=== PATIENT | female | born 1945 | race Caucasian/White ===

== ENCOUNTER 2017-11-29 17:01 | Emergency (ER) | payer MEDICARE ==
[2017-11-29 17:13] VITALS: BMI 32.2
[2017-11-29 17:18] VITALS: O2SAT 98
[2017-11-29] MEDS ORDERED: Sodium Chloride 0.9% 1,000 ML IV STA (18:19)
[2017-11-29 18:41] LABS: BASO % 0.6 % (0.0-2.0); EOS # 0.1 K/uL (0.0-0.7); EOS % 1.4 % (0.0-4.0); HEMOGLOBIN 12.8 g/dL (11.0-16.0); LYMPH # 1.9 K/uL (1.0-4.3); LYMPH % 25.8 % (20.0-40.0); MEAN CELL VOLUME 89.3 fL (81.0-99.0); MEAN CORPUSCULAR HEMOGLOBIN 30.2 pg (27.0-31.0); MEAN CORPUSCULAR HGB CONC 33.9 g/dL (33.0-37.0); MONO # 0.9 K/uL (0.0-0.8); MONO % 11.7 % (0.0-10.0); NEUT # 4.4 K/uL (1.8-7.0); NEUT % 60.5 % (50.0-75.0); NRBC % 0.1 % (0.0-2.0); RBC 4.24 Mil/uL (3.80-5.20); RED CELL DISTRIBUTION WIDTH 13.8 % (11.5-14.5); WHITE BLOOD COUNT 7.2 K/uL (4.8-10.8)
[2017-11-29 18:46] LABS: SQUAMOUS EPITHIAL 12 /hpf (0-5); URINE BACTERIA MOD (<OCC); URINE BILIRUBIN NEGATIVE (NEGATIVE); URINE BLOOD 2+ (NEGATIVE); URINE CLARITY Hazy (Clear); URINE COLOR Amber (YELLOW); URINE GLUCOSE (UA) NORMAL (Normal); URINE HYALINE CAST >20 /lpf (0-2); URINE LEUKOCYTE ESTERASE 1+ Leu/uL (Negative); URINE PROTEIN 2+ mg/dL (NEGATIVE)
[2017-11-29] MEDS ORDERED: Sodium Chloride 0.9% 1,000 ML ONE (18:51)
[2017-11-29 19:01] LABS: ALB/GLOB RATIO 1.1 (1.0-2.1); ALBUMIN 3.9 g/dL (3.5-5.0); ALT/SGPT 26 U/L (9-52); AST/SGOT 30 U/L (14-36); BLOOD UREA NITROGEN 17 mg/dL (7-17); CALCIUM 9.2 mg/dl (8.6-10.4); GFR AFRICAN-AMERICAN > 60; GFR NON-AFRICAN AMERICAN > 60
[2017-11-29 19:04] LABS: B-TYPE NATRIURETIC PEPTIDE 42.4 pg/mL (0-900)
--- NOTE | 2017-11-29 19:30 | C.PDOC ---
Time Seen by Provider: 11/29/17 18:13 Chief Complaint (Nursing): Abdominal Pain Past Medical History Vital Signs: Last Vital Signs Temp 98.6 F 11/29/17 17:13 Pulse 72 11/29/17 17:13 Resp 18 11/29/17 17:13 BP 103/73 11/29/17 17:13 Pulse Ox 98 11/29/17 17:13 - Medical History PMH: Depression, HTN, Hypercholesterolemia, Hyperlipidemia Surgical History: Cholecystectomy Family History: States: Unknown Family Hx - Social History Hx Alcohol Use: No Hx Substance Use: No - Immunization History Hx Tetanus Toxoid Vaccination: No Hx Influenza Vaccination: No Hx Pneumococcal Vaccination: No ED Course And Treatment - Laboratory Results Result Diagrams: 11/29/17 18:38 11/29/17 18:38 Lab Interpretation: Normal (ua neg, flu neg, trop neg) ECG: Interpreted By Me ECG Rhythm: Sinus Rhythm ECG Interpretation: Normal Rate From EC O2 Sat by Pulse Oximetry: 98 Pulse Ox Interpretation: Normal - Radiology CXR: Interpreted by Me CXR Interpretation: Yes: No Acute Disease - Other Rad abd x 2 X-Ray: Interpreted by Me (normal stool/gas pattern) Reevaluation Time: 19:31 Reassessment Condition: Improved Medical Decision Making Medical Decision Making: viral vs food intol vs depression normal labs and urine for pt, " who hasn't eaten and has passed 10 liquid stools /day x 3 days" Disposition Doctor Will See Patient In The: Office Counseled Patient/Family Regarding: Studies Performed, Diagnosis - Disposition Disposition: HOME/ ROUTINE Disposition Time: 19:32 Condition: GOOD - Clinical Impression Clinical Impression: Gastroenteritis
--- NOTE | 2017-11-29 19:31 | C.PDOC ---
History Of Present Illness 71 y/o female presents to the ED complaining of a dry non-productive cough and loose stools for the past 4 days. She is still eating and tolerating PO. Patient reports taking all of her medications but notes frequent vomiting. She has had around 10 episodes of non-bloody watery stools per day. Otherwise she denies any fevers, chills, SOB, chest pain, headaches, body aches, or congestion. Time Seen by Provider: 11/29/17 18:13 Chief Complaint (Nursing): Abdominal Pain History Per: Patient History/Exam Limitations: no limitations Onset/Duration Of Symptoms: Days Current Symptoms Are (Timing): Still Present Associated Symptoms: Vomiting, Diarrhea Recent travel outside of the [place]: Yes ([place]) Past Medical History Reviewed: Historical Data, Nursing Documentation, Vital Signs Vital Signs: Last Vital Signs Temp 98.6 F 11/29/17 17:13 Pulse 72 11/29/17 17:13 Resp 18 11/29/17 17:13 BP 103/73 11/29/17 17:13 Pulse Ox 98 11/29/17 19:36 - Medical History PMH: Depression, HTN, Hypercholesterolemia, Hyperlipidemia Surgical History: Cholecystectomy Family History: States: Unknown Family Hx - Social History Hx Alcohol Use: No Hx Substance Use: No - Immunization History Hx Tetanus Toxoid Vaccination: No Hx Influenza Vaccination: No Hx Pneumococcal Vaccination: No Review Of Systems Except As Marked, All Systems Reviewed And Found Negative. Constitutional: Negative for: Fever, Chills ENT: Negative for: Nose Congestion Cardiovascular: Negative for: Chest Pain Respiratory: Positive for: Cough. Negative for: Shortness of Breath, Sputum Gastrointestinal: Positive for: Nausea, Vomiting, Abdominal Pain, Diarrhea Physical Exam - Physical Exam Appears: Non-toxic, No Acute Distress Skin: Normal Color, Warm, Dry Head: Atraumatic, Normacephalic Eye(s): bilateral: Normal Inspection, PERRL, EOMI Nose: Normal Oral Mucosa: Moist Neck: Normal ROM, Supple Cardiovascular: Rhythm Regular, No Murmur Respiratory: No Accessory Muscle Use, No Rales, Rhonchi (scattered rhonchi throughout upper lung green), Wheezing (diffusely through upper lung green), Other (No acute respiratory distress) Gastrointestinal/Abdominal: Bowel Sounds (positive), Soft, No Tenderness, No Guarding, No Rebound Back: Normal Inspection, No CVA Tenderness, No Vertebral Tenderness Extremity: Bilateral: Atraumatic, Normal Color And Temperature, Normal ROM Neurological/Psych: Oriented x3, Normal Speech, Normal Cranial Nerves, Normal Motor, Normal Sensation Gait: Steady ED Course And Treatment - Laboratory Results Result Diagrams: 11/29/17 18:38 11/29/17 18:38 Lab Interpretation: Normal (ua neg, flu neg, trop neg) ECG: Interpreted By Me ECG Rhythm: Sinus Rhythm ECG Interpretation: Normal Rate From EC O2 Sat by Pulse Oximetry: 98 (RA) Pulse Ox Interpretation: Normal - Radiology CXR: Interpreted by Me CXR Interpretation: Yes: No Acute Disease - Other Rad abd x 2 X-Ray: Interpreted by Me Interpretation: normal stool/gas pattern Reevaluation Time: 19:31 Reassessment Condition: Improved Medical Decision Making Medical Decision Making: Time: 18:19 Initial Plan: --Labs --EKG --X-ray obstructive series --IVF hydration --Toradol 30 mg IV Clinical Impression: viral vs food intol vs depression normal labs and urine for pt, " who hasn't eaten and has passed 10 liquid stools /day x 3 days" stable for d/c home Disposition Doctor Will See Patient In The: Office Counseled Patient/Family Regarding: Studies Performed, Diagnosis, Need For Followup - Disposition Referrals: Eliseo Espino MD [Staff Provider] - Disposition: HOME/ ROUTINE Disposition Time: 19:32 Condition: GOOD Additional Instructions: dieta blanda de BRAT: Bananas, arroz garza, Manzana, Hernandez martha Erica sola agua Sigue con Dr. Espino yanira necessario. Instructions: Gastroenteritis (DC) Forms: [employer] (Ukrainian) Print Language: FIJIAN - POA Present On Arrival: None - Clinical Impression Clinical Impression: Gastroenteritis - Scribe Statement The provider has reviewed the documentation as recorded by the Scribe (Danica Walker) Provider Attestation: All medical record entries made by the Scribe were at my direction and personally dictated by me. I have reviewed the chart and agree that the record accurately reflects my personal performance of the history, physical exam, medical decision making, and the department course for this patient. I have also personally directed, reviewed, and agree with the discharge instructions and disposition.
[2017-11-29 19:42] VITALS: BP 110/70; PULSE 80; RESP 14; TEMP 97.8
--- NOTE | 2017-11-30 10:31 | RAD ---
PROCEDURE: Radiographs of the chest and abdomen (obstructive series) HISTORY: diarrhea, cough and congested COMPARISON: No prior. TECHNIQUE: AP radiograph of the chest, with upright and supine radiographs of the abdomen. FINDINGS: CHEST: Lungs: Clear. Cardiovascular: Normal size heart. No pulmonary vascular congestion. Pleura: No pleural fluid. No pneumothorax. Other findings: None. ABDOMEN AND PELVIS: Bowel: Unremarkable bowel gas pattern. No evidence of mechanical obstruction. Free air: None. Bones: Mild bilateral sacroiliac degenerative arthritis. Mild lumbar levoscoliosis. Other findings: Surgical clips in right upper quadrant status post cholecystectomy IMPRESSION: Normal bowel gas pattern. No pulmonary infiltrate.
--- NOTE | 2017-12-01 02:13 | CARD ---
APPROVED REPORT EKG Measurement Heart [id number] <Conclusion> Normal sinus rhythm Normal ECG
== END 2017-11-29 19:42 | disposition home or self-care (01) ==
LOC: C.ER 17:01
DX: K52.9 Noninfective gastroenteritis and colitis, unspecified (principal); I10 Essential (primary) hypertension; E78.00 Pure hypercholesterolemia, unspecified; E78.5 Hyperlipidemia, unspecified
CPT/HCPCS: 74022; 80053; 81001; 82948; 83880; 84484; 85025; 87040; 87804; 93005; 96374; 99284; J1885; J7030

== ENCOUNTER 2018-06-26 12:55 | Emergency (ER) | payer MEDICARE ==
[2018-06-26 12:55] VITALS: BMI 32.2
[2018-06-26 13:12] VITALS: BP 144/86; PULSE 95; RESP 18; TEMP 98.5; O2SAT 76
[2018-06-26] MEDS ORDERED: Albuterol 0.083% Inhal Sol (2.5 mg/3 mL) UD INH ONE ×2 (13:32→14:08)
[2018-06-26] MEDS ORDERED: guaiFENesin-Codeine 100-10mg/5ml Syrup (10ml) UD PO ONE (13:32)
[2018-06-26] MEDS ORDERED: Albuterol 0.083% Inhal Sol (2.5 mg/3 mL) UD ONE ×2 (13:41→14:13)
[2018-06-26] MEDS ORDERED: guaiFENesin-Codeine 100-10mg/5ml Syrup (10ml) UD ONE (13:41)
--- NOTE | 2018-06-26 13:47 | C.PDOC ---
History Of Present Illness 72 y/o female, with history of diabetes and hypertension, comes in to ED complaining of productive cough with yellow phlegm for 2 days, associated with body aches, leg pain, and back pain. Patient denies any sick contacts or travel history, SOB, or chest pain. Time Seen by Provider: 06/26/18 13:15 Chief Complaint (Nursing): Cough, Cold, Congestion History Per: Patient History/Exam Limitations: no limitations Onset/Duration Of Symptoms: Days Current Symptoms Are (Timing): Still Present Past Medical History Reviewed: Historical Data, Nursing Documentation, Vital Signs Vital Signs: Last Vital Signs Temp 98.5 F 06/26/18 13:09 Pulse 95 H 06/26/18 13:09 Resp 18 06/26/18 13:09 BP 144/86 06/26/18 13:09 Pulse Ox 76 L 06/26/18 13:09 - Medical History PMH: Depression, HTN, Hypercholesterolemia, Hyperlipidemia Surgical History: Cholecystectomy Family History: States: No Known Family Hx - Social History Hx Alcohol Use: No Hx Substance Use: No - Immunization History Hx Tetanus Toxoid Vaccination: No Hx Influenza Vaccination: No Hx Pneumococcal Vaccination: No Review Of Systems Respiratory: Positive for: Cough (productive) Musculoskeletal: Positive for: Back Pain, Leg Pain Physical Exam - Physical Exam Appears: Non-toxic, No Acute Distress Skin: Warm, Dry Head: Atraumatic, Normacephalic Eye(s): bilateral: Normal Inspection Oral Mucosa: Moist Throat: Normal, Erythema (mild), No Exudate, Other (uvula midline) Chest: Symmetrical Cardiovascular: Rhythm Regular, No Murmur Respiratory: Normal Breath Sounds, No Rales, No Rhonchi, No Wheezing Gastrointestinal/Abdominal: Soft, No Tenderness Extremity: No Pedal Edema Extremity: Bilateral: Atraumatic, Normal Color And Temperature, Normal ROM Neurological/Psych: Oriented x3, Normal Speech ED Course And Treatment O2 Sat by Pulse Oximetry: 76 Pulse Ox Interpretation: Abnormal - Other Rad CXR X-Ray: Read By Radiologist Interpretation: FINDINGS: LUNGS: Biapical pleural thickening. Bibasilar atelectasis. Please note that chest x-ray has limited sensitivity for the detection of pulmonary masses. PLEURA: No significant pleural effusion identified. No definite pneumothorax . CARDIOVASCULAR: Heart size appears within normal limits. Atherosclerotic calcifications of the aorta. OSSEOUS STRUCTURES: Degenerative changes. VISUALIZED UPPER ABDOMEN: Cholecystectomy clips. Mild elevation of the right hemidiaphragm. OTHER FINDINGS: None. IMPRESSION: Left basilar atelectasis. Biapical pleural thickening. Medical Decision Making Medical Decision Making: Impression: URI r/o influenza Plan: --Albuterol --Toradol 30 mg IM --Guaifenesin/codeine 10 ml PO --Chest x-ray --Flu swab Patient is negative for influenza A. Disposition - Disposition Referrals: [facility] at [facility] [Outside] Disposition: HOME/ ROUTINE Disposition Time: 15:00 Condition: GOOD Prescriptions: Azithromycin [Zithromax] 250 mg PO DAILY 5 Days #6 tab Codeine Phosphate/Guaifenesin [Codeine-Guaifen 10-100 mg/5 ml] 10 ml PO Q4 #120 liquid Ibuprofen [Motrin] 600 mg PO Q6 #20 tab Instructions: Upper Respiratory Infection (ED) Forms: [employer] (Norwegian) - Clinical Impression Clinical Impression: Upper respiratory infection - Scribe Statement The provider has reviewed the documentation as recorded by the Gradyibmi Wolf Provider Attestation: All medical record entries made by the Scribe were at my direction and personally dictated by me. I have reviewed the chart and agree that the record accurately reflects my personal performance of the history, physical exam, medical decision making, and the department course for this patient. I have also personally directed, reviewed, and agree with the discharge instructions and disposition.
--- NOTE | 2018-06-26 14:41 | RAD ---
HISTORY: r/o infiltrate COMPARISON: Chest x-ray portion of obstructive series performed 11/29/17 TECHNIQUE: Chest PA and lateral FINDINGS: LUNGS: Biapical pleural thickening. Bibasilar atelectasis. Please note that chest x-ray has limited sensitivity for the detection of pulmonary masses. PLEURA: No significant pleural effusion identified. No definite pneumothorax . CARDIOVASCULAR: Heart size appears within normal limits. Atherosclerotic calcifications of the aorta. OSSEOUS STRUCTURES: Degenerative changes. VISUALIZED UPPER ABDOMEN: Cholecystectomy clips. Mild elevation of the right hemidiaphragm. OTHER FINDINGS: None. IMPRESSION: Left basilar atelectasis. Biapical pleural thickening.
== END 2018-06-26 15:00 | disposition home or self-care (01) ==
LOC: C.ER 12:55
DX: J06.9 Acute upper respiratory infection, unspecified (principal); E11.9 Type 2 diabetes mellitus without complications; I10 Essential (primary) hypertension; E78.00 Pure hypercholesterolemia, unspecified
CPT/HCPCS: 71046; 87804; 96372; 99283; J1885

== ENCOUNTER 2018-07-29 01:04 | Emergency (ER) | payer MEDICARE ==
[2018-07-29 01:04] VITALS: BMI 32.2
[2018-07-29] MEDS ORDERED: Sodium Chloride 0.9% 1,000 ML IV SCH (01:45)
[2018-07-29] MEDS ORDERED: Iodixanol 320 MG/ML 100 ML BOTTLE IV ONE (01:47)
[2018-07-29] MEDS ORDERED: Sodium Chloride 0.9% 1,000 ML ONE (01:48)
--- NOTE | 2018-07-29 01:48 | C.PDOC ---
History Of Present Illness 72 y/o female with a PMHx of HTN, hypercholesterolemia, DM, and GERD, presents to the ED with complaints of epigastric abdominal pain, onset 3 days ago. Pain reportedly feels similar to previous GERD exacerbations. However, patient r eports taking medication, which she cannot recall the name of, without any relief. Associated with 2 episodes of vomiting and green-colored emesis. Patient also reports 2 episodes of diarrhea, which was non-dark and non-bloody. Denies recent antibiotic use. Otherwise patient denies chest pain, SOB, vaginal discharge, rash, fevers, chills, or night sweats. Prior surgical hx is significant for cholecystectomy. Time Seen by Provider: 07/29/18 01:16 Chief Complaint (Nursing): Abdominal Pain History Per: Patient History/Exam Limitations: no limitations Onset/Duration Of Symptoms: Days Current Symptoms Are (Timing): Still Present Location Of Pain/Discomfort: Epigastric Quality Of Discomfort: "Pain" Associated Symptoms: Vomiting, Diarrhea Past Medical History Reviewed: Historical Data, Nursing Documentation, Vital Signs Vital Signs: Last Vital Signs Temp 98.4 F 07/29/18 01:27 Pulse 67 07/29/18 01:27 Resp 16 07/29/18 01:27 BP 147/69 07/29/18 01:27 Pulse Ox 95 07/29/18 01:27 - Medical History PMH: Depression, Diabetes, GERD, HTN, Hypercholesterolemia, Hyperlipidemia Surgical History: Cholecystectomy Family History: States: Unknown Family Hx - Social History Hx Alcohol Use: No Hx Substance Use: No - Immunization History Hx Tetanus Toxoid Vaccination: No Hx Influenza Vaccination: No Hx Pneumococcal Vaccination: No Review Of Systems Constitutional: Negative for: Fever, Chills, Sweats Cardiovascular: Negative for: Chest Pain Respiratory: Negative for: Shortness of Breath Gastrointestinal: Positive for: Nausea, Vomiting, Abdominal Pain, Diarrhea. Negative for: Melena, Hematochezia Genitourinary: Negative for: Dysuria, Frequency, Vaginal Discharge Skin: Negative for: Rash Neurological: Negative for: Weakness, Dizziness Physical Exam - Physical Exam Appears: Non-toxic, No Acute Distress Skin: Warm, Dry Head: Normacephalic Eye(s): bilateral: Normal Inspection, PERRL, EOMI Nose: Normal Oral Mucosa: Moist Neck: Trachea Midline, Supple, Other (No meningeal signs- negative kernig's and brudzinskis) Chest: Symmetrical Cardiovascular: Rhythm Regular, No Friction Rub Respiratory: No Rales, No Rhonchi, No Wheezing Gastrointestinal/Abdominal: Soft, Tenderness (epigastric), No Guarding, No Rebound Back: No CVA Tenderness, No Vertebral Tenderness Extremity: Bilateral: Normal Color And Temperature Pulses: Left Dorsalis Pedis: Normal, Right Dorsalis Pedis: Normal Neurological/Psych: Oriented x3 Gait: Steady ED Course And Treatment - Laboratory Results Result Diagrams: 07/29/18 01:46 07/29/18 01:46 O2 Sat by Pulse Oximetry: 95 (RA) Pulse Ox Interpretation: Normal Medical Decision Making Medical Decision Makin72 y/o F with PMHx of HTN, DM, GERD presents w/ complaints of epigastric abdominal pain. Associated with nausea and 2 episodes of non-bloody non-dark diarrhea. Also reports 2x episodes of vomiting, non-bloody. Admits pain is similar to prior GERD episodes, but not relieved by taking unknown medication at home. Impression: Gastritis vs Intraabdominal infection Plan: Will seek labs and CT abdomen/pelvis with IV contrast. Administered IV fluids, 4 mg IV Zofran, and [address] 17[address] CT w/ out acute findings; informed pt to f/u regarding benign hepatic cysts Labs largely unremarkable endorsed to pt to f/u w/ urology regarding hematuria. she denies any vag bleeding or d/c. pt tolerating clears pain improved clear for d/c home with return indications and follow up pt agreeable to plan. Disposition - Disposition Referrals: Timothy Cordova MD [Staff Provider] - [facility] [Outside] [facility] at [facility] [Outside] [facility] [Outside] Disposition: HOME/ ROUTINE Disposition Time: 05:46 Condition: GOOD Additional Instructions: KACIE LEE, thank you for letting us take care of you today. Your provider was Russell Garcia and you were treated for ABD PAIN .. The emergency medical care you received today was directed at your acute symptoms. If you were prescribed any medication, please fill it and take as directed. It may take several days for your symptoms to resolve. Return to the Emergency Department if your sym ptoms worsen, do not improve, or if you have any other problems. Please contact your doctor or call one of the physicians/clinics you have been referred to that are listed on the Patient Visit Information form that is included in your discharge packet. Bring any paperwork you were given at discharge with you along with any medications you are taking to your follow up visit. Our treatment cannot replace ongoing medical care by a primary care provider outside of the emergency department. Thank you for allowing the [facility] team to be part of your care today. If you had an X-Ray or CT scan: A Radiologist will review the ED reading if any change in treatment is needed we will contact you. If you had a blood, urine, or wound culture: It will take several days for the results, if any change in treatment is needed we will contact you. If you had an STI test: It will take 48 hours for the results. Please call after 1 week if you have not heard back. Prescriptions: Famotidine [Pepcid] 40 mg PO Q24H PRN 5 Days #5 tablet PRN Reason: Indigestion / Heartburn Instructions: Gastritis (DC) Forms: [employer] (Austrian), [employer] (Salvadorean) Print Language: ANGUILLAN - Clinical Impression Clinical Impression: Gastritis - Scribe Statement The provider has reviewed the documentation as recorded by the Korey Walker Provider Attestation: All medical record entries made by the Gradyibmi were at my direction and personally dictated by me. I have reviewed the chart and agree that the record accurately reflects my personal performance of the history, physical exam, medical decision making, and the department course for this patient. I have also personally directed, reviewed, and agree with the discharge instructions and disposition.
[2018-07-29 01:49] LABS: BASO % 0.3 % (0.0-2.0); EOS # 0.1 K/uL (0.0-0.7); EOS % 0.7 % (0.0-4.0); HEMOGLOBIN 12.3 g/dL (11.0-16.0); LYMPH # 1.8 K/uL (1.0-4.3); LYMPH % 24.6 % (20.0-40.0); MEAN CELL VOLUME 91.8 fL (81.0-99.0); MEAN CORPUSCULAR HEMOGLOBIN 29.9 pg (27.0-31.0); MEAN CORPUSCULAR HGB CONC 32.6 g/dL (33.0-37.0); MEAN PLATELET VOLUME 8.9 fL (7.2-11.7); MONO # 0.4 K/uL (0.0-0.8); NEUT # 5.1 K/uL (1.8-7.0); NEUT % 69.4 % (50.0-75.0); RBC 4.12 Mil/uL (3.80-5.20); RED CELL DISTRIBUTION WIDTH 14.5 % (11.5-14.5); WHITE BLOOD COUNT 7.4 K/uL (4.8-10.8)
[2018-07-29 02:01] LABS: ALB/GLOB RATIO 1.4 (1.0-2.1); ALBUMIN 4.6 g/dL (3.5-5.0); ALT/SGPT 23 U/L (9-52); AST/SGOT 31 U/L (14-36); BLOOD UREA NITROGEN 12 mg/dL (7-17); GFR NON-AFRICAN AMERICAN > 60
[2018-07-29 02:33] LABS: SQUAMOUS EPITHIAL 8 /hpf (0-5); URINE BACTERIA RARE (<OCC); URINE BILIRUBIN NEGATIVE (NEGATIVE); URINE CLARITY Clear (Clear); URINE COLOR Yellow (YELLOW); URINE GLUCOSE (UA) NORMAL (Normal); URINE HYALINE CAST 0-2 /lpf (0-2); URINE LEUKOCYTE ESTERASE NEG Leu/uL (Negative); URINE PROTEIN 1+ mg/dL (NEGATIVE)
[2018-07-29 02:34] LABS: URINE BLOOD 2+ (NEGATIVE)
[2018-07-29 04:41] VITALS: TEMP 97.1
[2018-07-29] MEDS ORDERED: Sodium Chloride 0.9% 100 ML ONE (04:43)
[2018-07-29] MEDS ORDERED: Morphine 4 MG/ML VIAL ONE (05:55)
[2018-07-29 06:00] VITALS: BP 144/71; PULSE 55; RESP 18; O2SAT 98
--- NOTE | 2018-07-29 10:50 | CT ---
Date of service: 07/29/2018 PROCEDURE: CT Abdomen and Pelvis with contrast HISTORY: abd pain, epigastric, diarrhea COMPARISON: None available. TECHNIQUE: Contrast dose: 100 mL Visipaque 320 IV Radiation dose: Total exam DLP = 819.24 mGy-cm. This CT exam was performed using one or more of the following dose reduction techniques: Automated exposure control, adjustment of the mA and/or kV according to patient size, and/or use of iterative reconstruction technique. FINDINGS: LOWER THORAX: No visible consolidation, pleural effusion, or pneumothorax. Small hiatal hernia/distal esophageal wall thickening. LIVER: 5.9 x 5.1 cm hepatic dome hypodense lesion measures approximately 2 HU consistent with a cyst. 1.7 x 2.0 cm right hepatic lobe hypodense lesion measuring approximately 13 HU consistent with cyst. GALLBLADDER AND BILE DUCTS: Cholecystectomy. PANCREAS: Unremarkable. SPLEEN: 7 mm probable splenule. Otherwise unremarkable. ADRENALS: Unremarkable. KIDNEYS AND URETERS: The kidneys enhance symmetrically. No hydronephrosis or obstructing calculus identified. Bilateral parapelvic cysts. Too small to characterize 4 mm left renal hypodensity; statistically likely cyst. VASCULATURE: No aortic aneurysm. No significant atherosclerotic calcification of the aorta identified atherosclerotic calcification or mural plaque present. BOWEL: Stomach is nondistended. Lack of oral contrast limits evaluation for bowel pathology. Bowel loops appear within normal limits of caliber without evidence of obstruction. Diverticulosis without CT evidence of acute diverticulitis. APPENDIX: The appendix appears within normal limits of caliber. No secondary signs of acute appendicitis. PERITONEUM: No significant free fluid. No definite free air. LYMPH NODES: No bulky adenopathy identified. BLADDER: Decompressed urinary bladder limits evaluation. REPRODUCTIVE: Unremarkable. BONES: Mild degenerative changes. Vacuum disc phenomenon L5-S1. OTHER FINDINGS: None. IMPRESSION: Extensive diverticulosis without CT evidence of acute diverticulitis. 5.9 x 5.1 cm hepatic dome cyst. 1.7 x 2.0 cm right hepatic lobe cyst. Cholecystectomy. Additional incidental findings as above. Preliminary impression was provided by Knok.
--- NOTE | 2018-07-30 20:42 | CARD ---
APPROVED REPORT Date of service: 07/29/2018 EKG Measurement Heart [id number] <Conclusion> Normal sinus rhythm Counterclockwise rotation Borderline ECG
== END 2018-07-29 07:01 | disposition home or self-care (01) ==
LOC: C.ER 01:04
DX: K29.70 Gastritis, unspecified, without bleeding (principal)
CPT/HCPCS: 74177; 80053; 81001; 83690; 83735; 84484; 85025; 93005; 96374; 96375; 99284; J2270; J2405; J2765; J7030; Q9967